=== PATIENT | male | born 2005 | race Caucasian/White ===

== ENCOUNTER 2024-06-29 19:15 | Outpatient (REF) | payer BC, OTHER, SELFPAY ==
--- NOTE | ~2024-06-29 | MR_ITS ---
CLINICAL HISTORY: Pain, hockey injury 06/25/24 MR right shoulder without gadolinium Comparison: None Findings: There are tears of the anterior and posterior labrum extending through the inferior labrum. No acute fractures. No pathologic bone lesions. No joint effusion. The rotator cuff tendons are intact. The long head of biceps is intact. IMPRESSION: Anterior and posterior labral tears extending through inferior labrum. This document has been electronically signed by: Carola Mims MD on 06/29/2024 20:28:00
== END 2024-06-29 19:16 | disposition home or self-care (01) ==
LOC: HO.MRI 19:15
PROVIDERS: Visit Provider Family Medicine
DX: M25.511 Pain in right shoulder (principal)
CPT/HCPCS: 73221

== ENCOUNTER → 2024-06-29 19:24 | Outpatient (BNV) | payer BC, OTHER, SELFPAY | PROVIDERS: Visit Provider Radiology Diagnostic Radiology | DX: M25.511 Pain in right shoulder (principal) | CPT/HCPCS: 73221 ==